=== PATIENT | male | born 1985 | race Caucasian/White ===

== ENCOUNTER 2023-08-11 09:04 | Observation (INO) | payer OTHER, SELFPAY ==
[2023-08-11 09:09] VITALS: BP 147/86; PULSE 84; RESP 16; TEMP 36.5; O2SAT 98; BMI 25.2
--- NOTE | 2023-08-11 09:14 | CT_ITS ---
[address] [address] Patient Name: GOVIND AVILEZ MRN: [id number] date: 1985 Sex: M Assigned Patient Location: ER Current Patient Location: [facility] Accession/Order Number: [id number] Exam Date: 08/11/2023 09:30 Report Date: 08/11/2023 10:05 At the request of: ROBBIE WARE Procedure: CT abdomen pelvis w con EXAMINATION: CT abdomen pelvis w con HISTORY: lower abd pain COMPARISON: No relevant comparison available. TECHNIQUE: CT images were created with IV contrast. Axial, Coronal, and Sagittal images. Dose reduction techniques were achieved by using automated exposure control and/or adjustment of mA and/or kV according to patient size and/or use of iterative reconstruction technique. FINDINGS: LUNG BASES: No visible pulmonary or pleural disease. LIVER: No enlargement, atrophy, abnormal density, or significant focal lesion. BILIARY: No visible dilatation or calcification. PANCREAS: No lesion, fluid collection, ductal dilatation, or atrophy. SPLEEN: No enlargement or focal lesion. ADRENALS: No mass or enlargement. KIDNEYS: 3.5 mm proximal right ureterolith without hydronephrosis. 2 mm right nephrolith. Normal left. BOWEL/MESENTERY: No visible mass, obstruction, or bowel wall thickening.Normal appendix AORTA/VASCULAR: No aneurysm or dissection. RETROPERITONEUM: No mass or adenopathy. LYMPH NODES: No adenopathy. URINARY BLADDER: No visible focal wall thickening, lesion, or calculus. PELVIC ORGANS: No visible mass. Pelvic organs appropriate for patient age. ABDOMINAL WALL: No mass or hernia. BONES: No bony lesion or fracture. OTHER: Negative. CT/CT abdomen pelvis w con IMPRESSION: 3.5 mm proximal right ureterolith without hydronephrosis Electronically authenticated by: RUBEN PUTNAM Date: 08/11/2023 10:05
--- NOTE | 2023-08-11 09:18 | ED_ITS ---
HPI - General Adult General Chief complaint: Abdominal Pain Stated complaint: ABDOMINAL PAIN Time Seen by Provider: 08/11/23 09:06 Source: patient Mode of arrival: walk-in Limitations: no limitations History of Present Illness HPI narrative: Is 37-year-old male to the emergency department with chief complaint of abdominal pain. Has been ongoing for the last week. He is cramping in nature. It is located across lower abdomen. He reports there is small amount of blood in his stool. He had outpatient labs and urinalysis performed which were unremarkable per his report. He was sent by his primary care physician for a CT scan. Is no history of colonoscopy. He has a history of chronic gastrointestinal problems which have not been worked up. He has a history of diabetes. Related Data Allergies Allergy/AdvReac Type Severity Reaction Status Date / Time No Known Drug Allergies Allergy Verified 08/11/23 09:13 Review of Systems ROS Status of ROS 10 or more systems reviewed and unremark able except as noted in history and below Exam Narrative Exam Narrative: VITALS: I have reviewed the triage vital signs. GENERAL: Well developed, well appearing adult in no acute distress. NEURO: Alert and oriented. Moves all extremities. Face is symmetric and expressive. EYES: PERRL. No scleral icterus or conjunctival injection. No discharge. HENT: Normocephalic, atraumatic. Hearing is grossly intact. Nares grossly patent and without discharge. Mucous membranes moist. NECK: No JVD. Patient moves neck without restriction. CARDIO: Rhythm regular. Normal rate. No murmur, rub, or gallop. Pulses equal bilaterally in the upper and lower extremity. No lower extremity edema. PULM: Lungs clear to auscultation in all isaac. No wheezes, rales, or rhonchi. No conversational dyspnea. No splinting, stridor, or accessory muscle use. GI/: Abdomen is soft. Mild mid upper and lower abdominal tenderness. No rebound or guarding. Normoactive bowel sounds. EXTREMITIES: Symmetric muscle bulk. No joint swelling. No clubbing, cyanosis, or deformity. SKIN: Warm and dry. Normal turgor. No rash or lesions appreciated. PSYCH: Mood, affect, and interaction is appropriate to the setting. Constitutional Vital Signs, click to edit/add: Last Vital Signs Temp 97.7 F 08/11/23 09:09 Pulse 84 08/11/23 09:09 Resp 16 08/11/23 09:09 BP 147/86 H 08/11/23 09:09 Pulse Ox 98 08/11/23 09:09 O2 Del Method Room Air 08/11/23 09:09 Course Vital Signs Vital signs: Vital Signs Temperature 97.7 F 08/11/23 09:09 Pulse Rate 84 08/11/23 09:09 Respiratory Rate 16 08/11/23 09:09 Blood Pressure 147/86 H 08/11/23 09:09 Pulse Oximetry 98 08/11/23 09:09 Oxygen Delivery Method Room Air 08/11/23 09:09 Temperature 97.7 F 08/11/23 09:09 Pulse Rate 84 08/11/23 09:09 Respiratory Rate 16 08/11/23 09:09 Blood Pressure 147/86 H 08/11/23 09:09 Pulse Oximetry 98 08/11/23 09:09 Oxygen Delivery Method Room Air 08/11/23 09:09 Medical Decision Making MDM Narrative Medical decision making narrative: 37-year-old male sent to the emergency department for her CT scan from PCP. Vital stable, the patient is afebrile. Mild tenderness on exam. We'll obtain basic labs, urinalysis, CT scan. Patient agrees with this plan. CBC and chemistry without acute findings. His lipase is elevated three times the upper limit of normal suggesting acute pancreatitis. Urinalysis with some blood, no evidence of infection. CT scan shows uncomplicated right-sided ureterolithiasis with 3.5 mm proximal stone. There is no hydronephrosis. There is no hepatobiliary pathology noted. Patient with idiopathic pancreatitis. He does not need admission for the kidney stone and this would only necessitate outpatient follow-up with urology. We'll admit the patient for IV fluids and further workup for his pancreatitis. Patient agrees with this plan. Toradol as ordered for discomfort. Lactated Ringer's ordered for fluids. I interviewed patient about potential causes for his pancreatitis. He reports that his mother had bouts of pancreatitis throughout her life with no identified cause. He denies alcohol use. Case discussed with Dr. Hudson who agrees to admit this patient to his service. Medical Records Medical records reviewed: Yes I reviewed the patient's medical records Lab Data Lab results reviewed: Yes I reviewed the patient's lab results Labs: Lab Results 08/11/23 Range/Units 09:15 WBC 6.5 (4.0-11.0) 10^3/uL RBC 5.03 (4.70-6.10) 10^6/uL Hgb 15.1 (14.0-18.0) g/dL Hct 45.8 (42.0-54.0) % MCV 91.1 (80.0-94.0) fL MCH 30.0 (25.9-34.0) pg MCHC 33.0 (29.9-35.2) g/dL RDW 12.8 (11.0-15.0) % Plt Count 238 (150-450) 10^3/uL MPV 10.3 (9.5-13.5) fL Neut % (Auto) 57.4 (43.0-75.0) % Lymph % (Auto) 26.3 (20.5-60.0) % [place] % (Auto) 7.1 (1.7-12.0) % Eos % (Auto) 8.3 H (0.9-7.0) % Baso % (Auto) 0.6 (0.2-2.0) % Neut # (Auto) 3.7 (1.4-6.5) 10^3/uL Lymph # (Auto) 1.7 (1.2-3.8) 10^3/uL [place] # (Auto) 0.5 (0.3-0.8) 10^3/uL Eos # (Auto) 0.5 (0.0-0.7) 10^3/uL Baso # (Auto) 0.0 (0.0-0.1) 10^3/uL Abs Immat Gran (auto) 0.02 (0.00-0.03) 10^3/uL Imm/Tot Granulo (auto) 0.3 (0.0-0.5) % Sodium 140 (136-145) mmol/L Potassium 4.4 (3.5-5.1) mmol/L Chloride 106 (98-107) mmol/L Carbon Dioxide 29.0 (21.0-32.0) mmol/L Anion Gap 9.4 BUN 16.0 (7.0-18.0) mg/dL Creatinine 1.10 (0.70-1.30) mg/dL Est GFR ( Amer) >60 (>=60) Est GFR (Non-Af Amer) >60 (>=60) BUN/Creatinine Ratio 14.5 Glucose 109 H (74-106) mg/dL Calcium 9.1 (8.5-10.1) mg/dL Total Bilirubin 0.2 (0.2-1.0) mg/dL AST 23 (15-37) U/L ALT 44 (16-63) U/L Alkaline Phosphatase 85 (46-116) U/L Total Protein 7.6 (6.4-8.2) g/dL Albumin 3.9 (3.4-5.0) g/dL Globulin 3.7 g/dL Albumin/Globulin Ratio 1.1 Lipase 301.0 H (16.0-77.0) U/L Urine Color Lt. yellow (YELLOW) Urine Clarity Clear (CLEAR) Urine pH 5.5 (5.0-9.0) Ur Specific [place] >=1.030 A (1.005-1.025) Urine Protein Negative (NEG/TRACE) mg/dL Urine Glucose (UA) Negative (NEGATIVE) mg/dL Urine Ketones Negative (NEGATIVE) mg/dL Urine Occult Blood Moderate A (NEGATIVE) Urine Nitrite Negative (NEGATIVE) Urine Bilirubin Negative (NEGATIVE) Urine Urobilinogen 0.2 (0.2-1.0) EU/dL Ur Leukocyte Esterase Negative (NEGATIVE) Urine RBC 2-5 A (0-2) #/HPF Urine WBC None seen (NONE SEEN) #/HPF Ur Squamous Epith Cells Rare (NONE/RARE) #/LPF Urine Crystals None seen (None Seen) #/HPF Urine Bacteria Trace A (NONE SEEN) #/HPF Urine Casts None seen (NONE SEEN) #/LPF Urine Mucus Trace A (NONE SEEN) Ur Culture Indicated? No Imaging Data CT scan - abdomen: Radiologist's impression: ITS Impressions Abdomen/Pelvis CT 08/11/23 09:14 IMPRESSION: 3.5 mm proximal right ureterolith without hydronephrosis Electronically authenticated by: RUBEN PUTNAM Date: 08/11/2023 10:05 Discharge Plan Discharge Chief Complaint: Abdominal Pain Clinical Impression: Colic, ureteral, Acute pancreatitis Patient Disposition: Admitted as Observation Time of Disposition Decision: 11:10 Condition: Good Referrals: Physician,Non-Staff, MD [Primary Care Provider] - 1 week
[2023-08-11 09:33] LABS: Basophils Percent Auto 0.6 % (0.2-2.0); Eosinophils Absolute Auto 0.5 10^3/uL (0.0-0.7); Eosinophils Percent Auto 8.3 % (0.9-7.0); Hematocrit 45.8 % (42.0-54.0); Hemoglobin 15.1 g/dL (14.0-18.0); Immature Granulocytes Abs Auto 0.02 10^3/uL (0.00-0.03); Immature Granulocytes Pct Auto 0.3 % (0.0-0.5); Lymphocytes Absolute Auto 1.7 10^3/uL (1.2-3.8); Lymphocytes Percent Auto 26.3 % (20.5-60.0); Mean Corpuscular Volume 91.1 fL (80.0-94.0); Mean Platelet Volume 10.3 fL (9.5-13.5); Monocytes Absolute Auto 0.5 10^3/uL (0.3-0.8); Monocytes Percent Auto 7.1 % (1.7-12.0); Neutrophils Absolute Auto 3.7 10^3/uL (1.4-6.5); Neutrophils Percent Auto 57.4 % (43.0-75.0); Platelet Count 238 10^3/uL (150-450); Red Blood Count 5.03 10^6/uL (4.70-6.10); Red Cell Distribution Width 12.8 % (11.0-15.0); White Blood Count 6.5 10^3/uL (4.0-11.0)
[2023-08-11] MEDS: 0.9 % SODIUM CHLORIDE 1,000 ML 999 ML IV (09:44)
[2023-08-11 09:46] LABS: Alanine Aminotransferase 44 U/L (16-63); Albumin Globulin Ratio 1.1; Albumin Level 3.9 g/dL (3.4-5.0); Alkaline Phosphatase 85 U/L (46-116); Anion Gap 9.4; Aspartate Amino Transferase 23 U/L (15-37); BUN Creatinine Ratio 14.5; Bilirubin Total 0.2 mg/dL (0.2-1.0); Calcium 9.1 mg/dL (8.5-10.1); Chloride 106 mmol/L (98-107); Estimated GFR (African America >60 (>=60); Estimated GFR (Non-African Ame >60 (>=60); Globulin 3.7 g/dL; Glucose 109 mg/dL (74-106); Potassium 4.4 mmol/L (3.5-5.1); Sodium 140 mmol/L (136-145); Total Protein 7.6 g/dL (6.4-8.2)
[2023-08-11 09:52] LABS: Bilirubin Urine NEGATIVE (NEGATIVE); Blood Urine MODERATE (NEGATIVE); Clarity Urine CLEAR (CLEAR); Color Urine LT. YELLOW (YELLOW); Glucose Urine UA NEGATIVE (NEGATIVE); Ketones Urine NEGATIVE (NEGATIVE); Leukocyte Esterase Urine NEGATIVE (NEGATIVE); Nitrite Urine NEGATIVE (NEGATIVE); Protein Urine NEGATIVE (NEG/TRACE); Specific Gravity Urine >=1.030 (1.005-1.025); Urobilinogen Urine 0.2 EU/dL (0.2-1.0); pH Urine 5.5 (5.0-9.0)
[2023-08-11 10:02] LABS: Urine Microscopic Indicated YES
[2023-08-11 10:16] LABS: WBC Urine NONE SEEN #/HPF (NONE SEEN)
[2023-08-11 10:17] LABS: Bacteria Urine TRACE #/HPF (NONE SEEN); Cast Seen? NONE SEEN #/LPF (NONE SEEN); Crystals Seen? None Seen #/HPF (None Seen); Mucus Urine TRACE (NONE SEEN); Squamous Epithelial Cell Urine RARE #/LPF (NONE/RARE); Urine Culture Indicated NO
[2023-08-11] MEDS: LACTATED RINGER'S SOLUTION 1,000 ML 1000 ML IV (11:19)
[2023-08-11] MEDS: KETOROLAC TROMETHAMINE 30 MG/ML VIAL 15 MG IVP (11:19)
[2023-08-11 11:50] VITALS: BP 132/83; PULSE 114; TEMP 36.2; O2SAT 95; BMI 27.0
[2023-08-11 12:27] VITALS: O2SAT 97
[2023-08-11] MEDS: LACTATED RINGER'S SOLUTION 1,000 ML 125 ML IV (12:35)
--- NOTE | 2023-08-11 12:46 | P.HP_ITS ---
<Statement entered by Shaikh Becca MD - 08/11/23 15:24> This documentation has been reviewed and approved. Case d/w Do. Patient was not seen as I had left for office. Agree with treatment plan Unspecified abdominal pain Elevated lipase Non obs uretheral stone. Assessment and plan No sig intra abdominal patholgoy noted on CT. Surgery consulted. C/w IVF. Monitor HPI H&P: HPI History of Present Illness Chief complaint: ABDOMINAL PAIN Narrative: 08/11/23 1224 This is a 37-year-old male patient with a benign past medical history except for tobacco abuse, who presented to the ED this morning complaining of a 3-month course of abdominal pain and bloody stools. The patient initially noted lower abdominal discomfort in late May but did not think anything of it. By June the patient's abdominal discomfort was occurring daily and was notably postprandial. He describes his abdominal discomfort as crampy and pressure , occurring approximately 20 minutes after eating and lasting for several hours. He also has noted onset of softer stools that are always accompanied with bleeding (BRBPR). He notes his stools are blood-streaked or covered, but not primarily bloody content. He denies mucoid stools. He has not checked his temperature at home but has noted night sweats for the last few weeks. He denies dysuria or hematuria, nausea or vomiting or diarrhea. He endorses softer but formed stools. Again, his abdominal discomfort is focused in the lower quadrant/suprapubic area. Over the last couple of weeks the patient's abdominal pain has become quite severe and he presented to his PCP for evaluation yesterday. He was sent by his PCP to the ED for CT imaging and lab work. Workup in the ED was mostly benign. The only abnormal lab value was an elevated lipase (301). No leukocytosis or anemia was noted. A UA was negative for acute infection. A CT of the abdomen and pelvis was unremarkable except for a small, non-obstructing right ureterolith. He was admitted to the hospitalist service in observation for further abdominal pain workup and possible pancreatitis. At the time of my exam the patient continues to endorse lower abdominal pain and tenderness. He reports that he stopped smoking 3 weeks ago. He has never partaken of significant amounts of alcohol and he has had no alcohol for the last 3 months. He notes that coconut milk is the only thing that helps to relieve his discomfort for a few hours, otherwise he has not found any dietary modifications that have helped or worsened his pain. He attempted to cut out lactose from his diet initially but had no improvement in symptoms. On exam he is mildly tender to the left upper quadrant but exquisitely tender to the suprapubic area with mild guarding but no rebound. He denies any family history of inflammatory bowel disease. He notes ~ 10# weight loss over the last 3 months associated with decreased appetite/intake 2/2 to acute pain with eating. Opioid HPI Opioid Management Most Recent Opioid Data: Last Pain Assessment 08/11/23 14:24 Last ORT Total Score 14 08/11/23 11:59 Last ORT Risk Category High Risk 08/11/23 11:59 Review of Systems ROS Status of ROS 10 or more systems reviewed and unremark able except as noted in history and below [facility] Medical History (Updated 08/11/23 @ 13:15 by Do Cardona NP) Tobacco abuse ?Z72.0 - Tobacco use (ICD-10) History of broken leg ?Z87.81 - Personal history of (healed) traumatic fracture (ICD-10) Family History (Updated 08/11/23 @ 12:18 by Cheryl France LPN) Mother Family history of cancer Family history of diabetes mellitus Social History (Updated 08/11/23 @ 12:19 by Cheryl France LPN) Smoking status: Former smoker Second hand tobacco smoke exposure: No Non-prescribed substance use: cannabis (any form) 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 Known occupational exposures/hazards: No Highest level of school completed/degree received: high school graduate Are you now , , , , never or living with a partner: In a typical week, how many times do you talk on the telephone with family, friends, or neighbors: 3 or more times per week How often do you get together with friends or relatives: 3 or more times per week How often do you attend shinto or advent services: never Do you belong to any clubs or organizations such as shinto groups unions, fraternal or athletic groups, or school groups: no Total score: 2 Score interpretation: A score of greater than or equal to 2 indicates the lowest level of social isolation. Little interest or pleasure in doing things: not at all Feeling down, depressed, or hopeless: not at all Feel stressed/tense/nervous/anxious/difficulty sleeping: not at all Due to disability, difficulty making decisions: No Do you think of yourself as: straight/heterosexual Gender Identity: male Meds Home Medications and Allergies Home Medications Medication Instructions Recorded Confirmed Type bupropion HCl 300 mg 24 hr tablet, 300 mg PO DAILY 08/11/23 08/11/23 History extended release Allergies Allergy/AdvReac Type Severity Reaction Status Date / Time No Known Drug Allergies Allergy Verified 08/11/23 09:13 Exam Constitutional Vital Signs, click to edit/add: Last Vital Signs Temp 97.2 F L 08/11/23 11:50 Pulse 114 H 08/11/23 11:50 Resp 16 08/11/23 09:09 BP 132/83 08/11/23 11:50 Pulse Ox 97 08/11/23 12:27 O2 Del Method Room Air 08/11/23 12:27 Common normals: no apparent distress, oriented x3, alert and well nourished General appearance: cooperative Orientation/consciousness: Yes awake HENMT Common normals: normocephalic, head/scalp atraumatic, hearing grossly normal bilaterally, external nose normal and moist oral mucous membranes Eye Common normals: PERRL, EOMs intact bilaterally, conjunctivae normal and no scleral icterus Alignment: alignment normal Eyelid: eyelids normal Neck & C-Spine Common normals: full ROM, supple and no JVD Chest Common normals: inspection of chest normal Chest: symmetrical chest wall rise Respiratory Common normals: normal respiratory effort, no retractions, no use of accessory muscles and clear to auscultation bilaterally Effort & inspection: able to speak in complete sentences Cardio Common normals: no JVD, regular rate, regular rhythm, S1 normal heart sound, S2 normal heart sound, no gallops, no clicks, no murmurs, no rub and peripheral pulses 2+ throughout GI Common normals: Normal to inspection, nondistended, normoactive bowel sounds present, soft to palpation, no hepatosplenomegaly, no masses and no bruits Palpation: tender Details: LUQ (mild, no rebound/guarding) and suprapubic (Exquisitely tender, mild guarding, no rebound) Rectal Exam - Male: deferred (to surgical service) Back & Pelvis Common normals: thoracic and lumbar spine normal to inspection Extremity Common normals: normal capillary refill and no pedal edema General: normal exam except as noted; no clubbing and no cyanosis Neuro [place] Coma Scale: GCS not evaluated Common normals: CN's II-XII intact bilaterally, moves all extremities, no focal motor deficits and no sensory deficits noted Speech: speech normal Motor exam: strength 5/5 throughout Psych Common normals: mental status grossly normal, thought process normal, affect normal and activity/motor behavior normal Results Labs Labs: Short CBC 08/11/23 Range/Units 09:15 WBC 6.5 (4.0-11.0) 10^3/uL Hgb 15.1 (14.0-18.0) g/dL Hct 45.8 (42.0-54.0) % Plt Count 238 (150-450) 10^3/uL BMP 08/11/23 09:15 Sodium 140 Potassium 4.4 Chloride 106 Carbon Dioxide 29.0 BUN 16.0 Creatinine 1.10 Glucose 109 H Calcium 9.1 Liver Function 08/11/23 Range/Units 09:15 Total Bilirubin 0.2 (0.2-1.0) mg/dL AST 23 (15-37) U/L ALT 44 (16-63) U/L Alkaline Phosphatase 85 (46-116) U/L Albumin 3.9 (3.4-5.0) g/dL Urine 08/11/23 Range/Units 09:15 Urine Color Lt. yellow (YELLOW) Urine Clarity Clear (CLEAR) Urine pH 5.5 (5.0-9.0) Ur Specific [place] >=1.030 A (1.005-1.025) Urine Protein Negative (NEG/TRACE) mg/dL Urine Glucose (UA) Negative (NEGATIVE) mg/dL Pulse Oximetry Attestation: I have reviewed the pertinent pulse oximetry results. Imaging CT scan - abdomen: Attestation: I have reviewed the pertinent imaging results. Radiologist's impression: IMPRESSION: 3.5 mm proximal right ureterolith without hydronephrosis Assessment and Plan Assessment and Plan (1) Abdominal pain of unknown etiology: Assessment and Plan: Acute * Adm observation * Lower abdominal pain of unclear etiology * Associated with bloody soft stools, night sweats * No N/V/D, mucoid stools * C/S General surgery for possible colonoscopy - we appreciate Dr Nill's assistance with this pt's care * NPO for now pending Gen surgery eval * LR at 125/hr * Toradol PRN for pain * CBC, CMP daily (2) Acute pancreatitis: Assessment and Plan: Acute * Elevated lipase in the ED * Epigastric/LUQ tenderness on exam * Unremarkable pancreas on CT imaging * Normal caliber CBD, no cholelithiasis * NPO and IVFs for hydration * No EtOH abuse history (3) Tobacco abuse: Assessment and Plan: Chronic * In recent remission (x 3 weeks) * Continue home bupropion
--- NOTE | 2023-08-11 15:09 | PC.NURSE ---
urine strained, no visible clots or stones
[2023-08-11 15:38] VITALS: BMI 27.0
[2023-08-11 15:46] VITALS: BP 134/86; PULSE 70; RESP 16; TEMP 36.3; O2SAT 99
[2023-08-11 16:03] LABS: Cannabinoid Screen Urine POSITIVE (NEGATIVE); Cocaine Screen Urine NEGATIVE (NEGATIVE); Methamphetamines Screen Urine NEGATIVE (NEGATIVE); Opiate Screen Urine NEGATIVE (NEGATIVE); Phencyclidine Screen Urine NEGATIVE (NEGATIVE)
[2023-08-11 16:04] LABS: Amphetamine Screen Urine NEGATIVE (NEGATIVE); Barbiturates Screen Urine NEGATIVE (NEGATIVE); Benzodiazepines Screen Urine NEGATIVE (NEGATIVE); Buprenorphine Screen Urine NEGATIVE (NEGATIVE); Methadone Screen Urine NEGATIVE (NEGATIVE); Oxycodone Screen Urine NEGATIVE (NEGATIVE); Tricyclic Antidepressant Urine NEGATIVE (NEGATIVE)
[2023-08-11] MEDS: PANTOPRAZOLE SODIUM 40 MG VIAL IV (16:15)
[2023-08-11] MEDS: KETOROLAC TROMETHAMINE 30 MG/ML VIAL IVP (16:16)
--- NOTE | 2023-08-12 13:28 | CM.DCFOLLOWU ---
Person spoke with: patient How are you feeling? much better How is your pain? limited Did you understand your discharge instructions? yes Do you have any questions about your discharge instructions? no Were you given any prescriptions at discharge? no Were you able to get your prescriptions filled? N/A Do you understand how to take your medications as ordered? yes Do you have any questions about your follow up appointment and do you plan to keep your follow up appointment? no questions, provided him with Dr. Plascencia's office number and let pt know they should be calling tomorrow to schedule follow up Is there anything else that you would like to discuss? no Questions/Comments/Concerns/Other: N/A
== END 2023-08-11 16:45 | disposition home or self-care (01) ==
LOC: ER 11:29 → MS 11:50
PROVIDERS: Surgery; Admitting Provider Internal Medicine; Emergency Provider Student in an Organized Health Care Education/Training Program; Visit Provider Internal Medicine
DX: R10.30 Lower abdominal pain, unspecified (principal); R74.8 Abnormal levels of other serum enzymes; N20.1 Calculus of ureter; Z87.81 Personal history of (healed) traumatic fracture; Z87.891 Personal history of nicotine dependence
CPT/HCPCS: 36415; 74177; 80053; 80307; 81001; 83690; 85025; 94761; 96374; 96375; 96376; 99285; G0378; Q9967

== ENCOUNTER 2023-11-23 12:22 | Outpatient (OUT) | payer OTHER, SELFPAY ==
--- OUTSIDE RECORDS SUMMARY | 2023-11-23 12:29 | XMS_ITS | CCD ---
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 Name Role Phone QUIROS, SHERI A Unavailable Unavailable QUIROS, SHERI A Unavailable Unavailable QUIROS, SHERI A Unavailable Unavailable ZIEBJOSTIN WELLS Unavailable Unavailable Rosemary KELLY, Jana Sanon Primary Care Provider Jany Liang NP Unavailable SERVICES, [facility] Primary Care Unava JANY Mercado Attending Unavailable JANY LIANG Attending Unavailable SANDY SAN Attending Unavailable JANY LIANG Referring Unavailable JANY LIANG Attending Unavailable JANY LIANG Attending Unavailable JANY LIANG Attending Unavailable JANY LIANG Attending Unavailable JANY LIANG Primary Care Physician Seven TINOCO Attending Unavailable Seven TINOCO Attending Unavailable JANY LIANG Referring Unavailable Allergies Allergy Classification Reported Allergen(s) Allergy Type Date of Onset Reaction(s) Facility (1 source) No Known Medication Allergies; Translations: [No Known Medication Allergies] Propensity to adverse reactions (disorder) [facility] Repository Medications Current Medications Medication Drug Class(es) Dates Sig (Normalized) Sig (Original) 24 hr buPROPion hydrochloride 300 mg extended release oral tablet (2 sources) Aminoketone Start: 09-02-2023 take 1 tablet by mouth once daily Wellbutrin XL 300 mg/24 hours Tab-ER 300 mg = 1 tab(s), Oral, Daily, Refills(s) 0 Start Date: 09/02/23 Status: Ordered Start: 05-12-2023 take 1 tablet by stan th every twenty-four hours in the morning buPROPion XL (Wellbutrin XL) 300 MG 24 hr tablet Indications: Anxiety Take 1 tablet (300 mg) by mouth in the morning. 90 tablet 1 05/12/2023 Active docosahexaenoic acid 120 mg / eicosapentaenoic acid 180 mg oral capsule (1 source) omega-3 1000 MG capsule capsule 1,000 mg in the morning. 0 Active Multiple Vitamin (Therems) tablet (1 source) take 1 tablet by mouth in the morning Multiple Vitamin (Therems) tablet Take 1 tablet by mouth in the morning. 0 Active Multivitamin preparation (1 source) Start: 09-02-2023 take 1 tablet by mouth once daily multivitamin 1 tab(s), Oral, Daily, Refill(s) 0 Start Date: 09/02/23 Status: Ordered Problems Problem Classification Problem Date Documented Da te Episodic/Chronic Abdominal pain (2 sources) Abdominal pain; Translations: [Right lower quadrant pain] Onset: 08-10-2023 09-02-2023 Episodic Anxiety disorders (1 source) Anxiety; Translations: [Anxiety disorder, unspecified] Onset: 10-08-2022 10-08-2022 Chronic Calculus of urinary tract (1 source) Ureteric stone 09-02-2023 Episodic Gastrointestinal hemorrhage (3 sources) Hemorrhage of rectum and anus; Translations: [Hemorrhage of anus and rectum] Onset: 09-29-2023 Episodic Genitourinary symptoms and ill-defined conditions (1 source) Blood in urine Onset: 08-10-2023 Episodic Miscellaneous mental health disorders (1 source) Primary insomnia; Translations: [Primary insomnia] Onset: 10-08-2022 10-08-2022 Chronic Other nutritional; endocrine; and metabolic disorders (1 source) Overweight 09-29-2023 Episodic Other nutritional; endocrine; and metabolic disorders (1 source) Overweight in adulthood with body mass index of 25 or more but less than 30 09-29-2023 Episodic Unclassified (1 source) Blood in Urine, sent over by doc Onset: 08-10-2023 Results Test Name Value Interpretation Reference Range Facil ity Insurance Correspondenceon 0 11-20-2023 Insurance Correspondence [id number]#1.00TIFF Normal [facility] Consent for Procedure/Surger yon 09-30-2023 Consent for Procedure/Surgery [id number]#1.00TIFF Normal [facility] Facesheeton 09-30-2023 Facesheet [id number]#1.00TIFF [facility] Ambulatory Visit Summaryon 0 09-29-2023 Ambulatory Visit Summary GOVIND AVILEZ :1985 Visit Date:09/29/2023 Ambulatory Visit Instructions Your Care Team Attending Physician - Seven TINOCO MD Primary Care Physician - JANY LIANG CNP Referring Physician - JANY LIANG CNP This Is Your Medications List Contact prescribing physician if questions or concerns buPROPion (Wellbutrin XL 300 mg/24 hours Tab-ER) multivitamin Procedures Performed Tonsillectomy with adenoidectomy. Discharge Vitals Heart Rate (Peripheral) 72 Respiratory Rate 16 Blood Pressure 124/84 Height 180.34 cm Height 71 in Weight 87.3 kg Weight 192.06 lb BMI 26.84 Medications What How Much When Instructions Unchanged buPROPion (Wellbutrin XL 300 mg/ 24 hours Tab-ER) 1 Tablets By Mouth Every day Contact prescribing physician if questions or concerns Unchanged multivitamin 1 Tablets By Mouth Every day Contact prescribing physician if questions or concerns Allergies No Known Allergies No Known Medication Allergies Problems Ongoing - Any problem that you are currently receiving treatment for. BMI 26.0-26.9,adult BRBPR (bright red blood per rectum) Overweight RLQ abdominal pain Ureterolithiasis Patient Survey You may receive a survey via text or e-mail asking about your office visit. Please share your experience with us by completing your survey. We appreciate your feedback and thank you for choosing us for your care. [facility] ED Note-Physicianon 08-30-19 24 ED Note-Physician [id number]#1.00TIFF [facility] RAD - CT Reporton 08-30-2023 RAD - CT Report [id number]#1.00TIFF [facility] Physician Referralon 024 Physician Referral [id number]#1.00TIFF [facility] US JOHN DOP LEG LTon 05-15-20 17 US JOHN DOP LEG LT [address] [place] [address] Patient: GOVIND AVILEZ Exam Date: 05/15/2017DOB: 1985 Gender:M : DR SHERI QUIROS . Admission #: [id number] : Order #: [id number] HERE TO VIEW EXAM RADIOLOGY REPORT PROCEDURE: ULTRASOUND VENOUS DOPPLER LEG LEFT COMPARISON: US JOHN DOP LEG LT, 11/06/2016. INDICATIONS: Acute embolism and thrombus of other specified deep vein of left lower extremity TECHNIQUE: Lower extremity sands scale and Duplex Doppler evaluation of the deep venous system from the inguinal ligament through the calf veins. FINDINGS: REGION: Left lower extremity.THROMBI: None. COMPRESSIBILITY: Normal compressibility.FL OW: Normal waveform and antegrade flow between 5 and 20 cm/s. *Exam performed in accordance with [facility] practice guidelines- Peripheral venous ultrasound, August 25, 2009. CONCLUSION: 1. No deep vein thrombosis within the left lower extremity. Dictated by: Jostin Contreras M.D. on 05/15/2017 at 12:35 Approved by: Jostin Contreras M.D. on 05/15/2017 at 12:39 Normal [facility] Vital Signs Date Time Vital Sign Value Performing Clinician Neeta bae 09-29-2023 13:11-0400 Blood Pressure Location Seven TINOCO [facility] 09-29-2023 13:11-0400 Diastolic blood pressure 84 mm[Hg] Seven PALMERL [facility] 09-29-2023 13:11-0400 Heart rate 72 /min Seven PALMERL [facility] 09-29-2023 13:11-0400 Respiratory rate 16 /min Seven PALMERL [facility] 09-29-2023 13:11-0400 Systolic blood pressure 124 mm[Hg] Seven PALMERL [facility] Encounters Encounter Date Encounter Type Care Provider Facility Start: 09-29-2023 End: 09-29-2023 ambulatory Seven TINOCO Facility: [facility] Start: 09-29-2023 End: 09-29-2023 Patient encounter procedure Seven TINOCO [facility] Start: 08-31-2023 End: 08-31-2023 ambulatory JANY R LIANG Not Available Start: 08-27-2023 ambulatory Seven TINOCO Facility : [facility] Start: 08-17-2023 End: 08-17-2023 ambulatory JANY R LIANG Not Available Start: 08-10-2023 End: 08-10-2023 Emergency department patient visit [facility] Start: 08-10-2023 End: 08-11-2023 ambulatory JANY R LIANG Not Available Start: 07-07-2023 Chart abstracting Sandy miranda MD Work Phone: [facility] Start: 07-07-2023 End: 07-07-2023 ambulatory SANDY SAN Not Available Start: 07-01-2023 End: 07-01-2023 ambulatory JANY R LIANG Not Available Start: 06-11-2023 End: 06-11-2023 ambulatory JANY R LIANG Not Available Start: 05-12-2023 End: 05-12-2023 ambulatory JANY R LIANG Not Available Start: 05-15-2017 End: 05-16-2017 Ambulatory SHERI QUIROS Facility: Procedures Date Procedure Procedure Detail Performing Clinician Tonsillectomy and adenoidectomy Seven TINOCO Plan of Treatment Date Care Activity Detail Author Start: 09-22-2023 End: 09-22-2023 Patient encounter procedure 09/22/2023 8:30 AM EDT Office Visit [facility] [address] [place] [id number] Jany Liang NP [address] [place] [address] [facility] Start: 07-07-2023 End: 07-07-2023 Patient encounter procedure 07/07/2023 11:30 AM EST Office Visit [facility] [address] [facility] [address] [place] [id number] Sandy San MD [address] [facility] [address] [place] [address] [facility] Start: 01-30-2023 Influenza vaccination Influenza Vacc ine (#1) [facility] Immunizations Immunization Date Immunization Notes Care Provider Fa cility 01-07-2021 SARS-CoV-2 (COVID-19 ) mRNA BNT-162b2 vax [employer] [facility] Comment on above: Result Comment: 2023: ALL 12-14-2020 SARS-CoV-2 (COVID-19 ) mRNA BNT-162b2 vax [employer] [facility] Comment on above: Result Comment: 2023: ALL Payers Date Payer Category Payer Unknown BCBS BCBS [id number] 2023-Present [phone] [address] [place] [address] [id number] 2023 Unknown [id number] 2022 Unknown [id number] 1985 Unknown [id number] 1985 Unknown [id number] [id number] 1985 Unknown [id number] [id number] 1985 Unknown [id number] 1985 Unknown [id number] 1985 Unknown [id number] [id number] 1985 Unknown [id number] [id number] 1985 Unknown [id number] 1985 Unknown [id number] 1985 Unknown [id number] [id number] 1958 Self-pay [id number] Social History Date Type Detail Facility Start: 05-12-2023 Tobacco smoking status KYIS Occasional tobacco smoker [facility] History of tobacco use Cigarette Smoker [facility] Start: 05-11-2023 End: 05-12-2023 Cigarettes smoked current (pack per day) - Reported 0.3 [facility] Start: 05-12-2023 Tobacco use and exposure Smokeless tobacco non-user [facility] Start: 07-07-2023 Alcohol intake Current drinker of alcohol (finding) [facility] Start: 10-30-2022 End: 05-11-2023 Humiliation, Afraid, Rape, and Kick questionnaire [HARK] [facility] Within the last year , have you been afraid of your partner or ex-partner? No [facility] Do you belong to any clubs or organizations such as synagogue groups, unions, fraternal or athletic groups, or school groups? Yes [facility] Are you now , , , , never or living with a partner? [facility] How often to you hav e a drink containing alcohol? Monthly or less [facility] How many standard dr inks containing alcohol do you have on a typical day? 1 or 2 [facility] How often do you hav e 6 or more drinks on 1 occasion? Less than monthly [facility] How hard is it for y ou to pay for the very basics like food, housing, medical care, and heating Not very hard [facility] Do you feel stress - tense, restless, nervous, or anxious, or unable to sleep at night because your mind is troubled all the time - these days [OSQ] To some extent [facility] (I/We) worried wherachid er (my/our) food would run out before (I/we) got money to buy more. Never true [facility] In the past 12 month s, has lack of transportation kept you from medical appointments or from getting medications? No [facility] Start: 1985 Sex Assigned At Male [facility] Start: 10-30-2022 Gender identity Identifies as male gender (finding) [facility] Start: 10-30-2022 Sexual orientation Heterosexual (finding) [facility] Start: 09-29-2023 Tobacco smoking status Light tobacco smoker (finding) [facility] Functional Status Date Assessment Result Facility 09-29-2023 Functional Status N/A [facility] Clinical Note 09-29-2023 Note Date & Type Note Facility 09-29-2023 Note Chief Complaint consultation for rectal bleeding HPI Staff 37 year old male presents on consultation from Jany Liang [facility] for rectal bleeding. Presented to [place] ED 08/10 with complaint of crampy lower abdominal pain with rectal bleeding for greater than one week. Reports rectal bleeding has been intermittent over several years but was worse recently while experiencing abdominal pain. Pain has since resolved. Denies nausea or vomiting. Never had colonoscopy in the past. No known family history of IBD. History of Present Illness 37 yo male referred for rectal bleeding and abd pain; patient reports 3 month h/o lower abd pain and rectal bleeding; seen in [facility] ED 7 weeks ago for suprapubic pain, rectal bleeding; found to have kidney stone, also mild elevation of lipase; feels that he has passed stone; pain has resolved; still with intermittent red blood with bms, on outside of stool and in toilet bowel, no pain, no hemorrhoid prolapse; was using NSAIDs for awhile, none currently; no N/V or loose stools; no wt loss, no previous abd operations or endoscopy; no fmhx of GI malignancy or IBD; vapes/smokes daily. Review of Systems PHQ Score Initial Depression Screen Score: 0 SCORE ROS - Provider Constitutional: no fever, no sweats, no weight loss. Eyes: no glasses, no blurred vision, no visual loss. ENMT: no dentures, no hoarseness, no swallowing difficulties, no hearing loss, no ear infection(s), no nose bleeds. Cardiovascular: normal blood pressure, no chest pain, regular heartbeat, no heart murmur. Respiratory: no shortness of breath, no cough, no asthma, no wheezing. Gastrointestinal: no nausea, no vomiting, no diarrhea, no constipation, no blood in stool, no change in bowel habits, no abdominal pain, no hepatitis. Genitourinary: no kidney stones, no urine infection, no dysuria. Musculoskeletal: no pain, no weakness. Skin: no changing moles, no rash, no skin lumps. Neurologic: no seizures, no epilepsy, no headache. Psychiatric: no emotional or psychiatric problem. Heme/Lymph: no bleeding problems, no anemia, no blood clots, no transfusions. Allergy/Immunologic: no swollen lymph nodes/glands, no IV drug abuse. Other: Additional ROS info: Except as noted in the above Review of Systems and in the History of Present Illness, all other systems have been reviewed and are negative or noncontributory. Physical Exam Vitals & Measurements HR: 72(Peripheral) RR: 16 BP: 124/84 HT: 71 in HT: 180.34 cm WT: 87.3 kg WT: 192.06 lb BMI: 26.84 HEENT: normal conjunctiva, sclera clear, no scleral icterus, EOM intact, PERRLA, oral mucosa moist without lesions. Neck: trachea midline, no mass, symmetric, no thyromegaly or nodules, no adenopathy Respiratory: lungs CTA, respirations non labored. Cardiovascular: regular rate and rhythm, no murmur, no pedal edema or varicosities. Gastrointestinal: soft, non distended, no tenderness, no masses, no palpable hernias, diastasis recti no, no hepatosplenomegaly; normal bs Lymphatic: no cervical adenopathy, no supraclavicular adenopathy. Musculoskeletal: normal gait, digits and nails without infection, nodes, cyanosis, clubbing. Skin: no rashes, no lesions, no ulcers, no subcutaneous nodules, induration. Psychiatric/Neuro: oriented to time, place, person, judgement normal, affect appropriate for age, insight intact, no focal deficits. Tests: labs reviewed, x-rays reviewed, review of old records completed , Discussed surgical options, risks, and possible complications with patient. Assessment/Plan 1. Rectal bleeding (K62.5: Hemorrhage of anus and rectum) plan colonoscopy under anesthesia for further evaluation, informed consent obtained. Follow-up No qualifying data available Problem List/Past Medical History Ongoing BMI 26.0-26.9,adult BRBPR (bright red blood per rectum) Overweight Rectal bleeding RLQ abdominal pain Ureterolithiasis Historical No qualifying data Procedure/Surgical History Tonsillectomy with adenoidectomy. Medications multivitamin, 1 tab(s), Oral, Daily Wellbutrin XL 300 mg/24 hours Tab-ER, 300 mg= 1 tab(s), Oral, Daily Allergies No Known Allergies No Known Medication Allergies Social History Alcohol - Denies Alcohol Use, 09/29/2023 Substance Abuse Current, Marijuana, 1-2 times per week, 09/29/2023 Tobacco 4 or less cigarettes(less than 1/4 pack)/day in last 30 days Tobacco Use:. Current vaping or e-cigarette use Smokeless Tobacco Use:. Cigarettes, Oral, Started age 14.0 Years. Yes, 09/29/2023 Family History Family history is negative Immunizations Vaccine Date Status Comments SARS-CoV-2 (COVID-19) mRNA BNT-162b2 vax 01/07/2021 Recorded 2023-09-02: ALL SARS-CoV-2 (COVID-19) mRNA BNT-162b2 vax 12/14/2020 Recorded 2023-09-02: ALL [facility] Comment on above: Result Comment: Elec tronically Signed By: ALEJANDRINA KELLY, Seven Soto\Date and Time Signed: 09/29/23 14:59 EDT History and physical note 08-30-2023 Note Date & Type Note Facility 08-30-2023 Note [id number] #1.00TIFF [facility] Evaluation + Plan note Note Date & Type Note Facility Evaluation + Plan note No data available for this section [facility] Hospital Discharge instructions Note Date & Type Note Facility Hospital Discharge instructions No data available for this section [facility] Progress note Note Date & Type Note Facility Progress note No data available for this section [facility] Summary Purpose Family History No Family History Records FoundNo Family History Records FoundNo Family History Records Found No data available for this section No Family History Records Found Advance Directives No Advanced Directives Records FoundNo Advanced Directives Records FoundNo Advanced Directives Records FoundNo Advanced Directives Records Found Additional Source Comments (unrecognized sect ion and content) No Status Records FoundNo Status Records FoundNo Status Records FoundNo Status Records Found INFORMATION SOURCE (unrecogn ized section and content) DATE CREATED AUTHOR 11/24/2017 [facility] DATE CREATED AUTHOR AUTHOR'S ORGANIZ ATION 08/11/2023 [facility] DATE CREATED AUTHOR AUTHOR'S ORGANIZ ATION 09/01/2023 [facility] DATE CREATED AUTHOR AUTHOR'S ORGANIZ ATION 11/22/2023 [facility] Care Teams (unrecognized sec tion and content) Agricultural Economics Teacher Relationship Specialty Start Date End Date Jana Riley MD [address] [place], [place] [id number] PCP - General Family Medicine 10/30/22 Jany Liang NP [address] [place], [place] [id number] Nurse Practitioner Family Medicine 10/30/22 FOR RECORDS PERTAINING TO PATIENTS WHO ARE OR HAVE BEEN ENROLLED IN A CHEMICAL DEPENDENCY/SUBSTANCEABUSE PROGRAM, SOME INFORMATION MAY BE OMITTED. This clinical summary was aggregated from multiple sources. Caution should be exercised in using it in the provision of clinical care. This summary normalizes information from multiple sources, and as a consequence, information in this document may materially change the coding, format and clinical context of patient data. In addition, data may be omitted in some cases. CLINICAL DECISIONS SHOULD BE BASED ON THE PRIMARY CLINICAL RECORDS. [facility]. provides no warranty or guarantee of the accuracy or completeness of information in this document.
== END 2023-11-23 12:23 | disposition home or self-care (01) ==
LOC: PST 12:24
PROVIDERS: PCP Nurse Practitioner Family; Visit Provider Surgery
DX: Z01.818 Encounter for other preprocedural examination (principal); K62.5 Hemorrhage of anus and rectum; R10.9 Unspecified abdominal pain

== ENCOUNTER 2023-12-02 06:01 | Day surgery (SDC) | payer OTHER, SELFPAY ==
[2023-11-23 13:13] VITALS: BMI 26.8
[2023-11-23 13:15] VITALS: BP 133/83; PULSE 66; TEMP 36.3; O2SAT 98
--- NOTE | 2023-12-02 | OP_ITS ---
OPERATION DATE: 12/02/2023 PREOPERATIVE DIAGNOSIS: Intermittent rectal bleeding, lower abdominal pain. POSTOPERATIVE DIAGNOSIS: Prominent rectal veins. PROCEDURE: Colonoscopy to cecum with random sigmoid and rectal biopsies. SURGEON: Seven Plascencia M.D. ANESTHESIA: Monitored anesthesia care. ESTIMATED BLOOD LOSS: Less than 1 mL. INDICATIONS AND CONSENT: Patient is a 38-year-old male with history of intermittent rectal bleeding with bowel movements, bright red, as well as lower abdominal pain. Indications, risks, benefits, alternatives of proceeding with colonoscopy were explained extensively to the patient, including the risks of bleeding, colon perforation or anesthetic complications. All of his questions were answered. Informed consent was obtained. PROCEDURE: Patient brought to the operating room, placed in the left lateral decubitus position. Monitored anesthesia care was provided. Rectal exam was performed which showed no masses or blood. The scope was inserted into the anal canal. Under direct visualization was advanced. It was advanced to the cecum where cecal markings were clearly identified. There was noted to be a good prep. Upon withdrawal of the scope, mucosal surfaces were carefully examined. There were no mass lesions or polyps. No inflammatory changes or ulcerations. There was noted to be some prominent rectal veins. Random biopsy was obtained of the sigmoid colon, as well as the rectum with good hemostasis. The scope was retroflexed in the anal canal. There was no significant hemorrhoidal disease. There were some prominent rectal veins. No old or new blood. The scope was then withdrawn. Patient tolerated procedure well, was sent to recovery room in good condition.f/u screening colonoscopy should be in 10 years. CC: RAMA Mullen
--- OUTSIDE RECORDS SUMMARY | 2023-12-02 06:04 | XMS_ITS | CCD ---
Author Organization [facility] Care Team Providers Care Hook Puller Name Role Phone QUIROS, SHERI A Unavailable Unavailable QUIROS, SHERI A Unavailable Unavailable QUIROS, SHERI A Unavailable Unavailable ZIEBJOSTIN WELLS Unavailable Unavailable Rosemary KELLY, Jana Sanon Primary Care Provider Jany Liang NP Unavailable SERVICES, [facility] Primary Care Unava JANY Mercado Attending Unavailable JANY LIANG Attending Unavailable SANDY SAN Attending Unavailable JANY LIANG Referring Unavailable JANY LIANG Attending Unavailable JANY LIANG Attending Unavailable JANY LIANG Attending Unavailable JANY LIANG Attending Unavailable JANY LIANG Primary Care Physician [phone] Seven TINOCO Attending Unavailable Seven TINOCO Attending Unavailable JANY LIANG Referring Unavailable Allergies Allergy Classification Reported Allergen(s) Allergy Type Date of Onset Reaction(s) Facility (1 source) No Known Medication Allergies; Translations: [No Known Medication Allergies] Propensity to adverse reactions (disorder) [facility] Repository Medications Current Medications Medication Drug Class(es) [...] Insurance Correspondenceon 0 11-20-2023 Insurance Correspondence [id number]#1.00TIFF Normal [facility] Consent for Procedure/Surger yon 09-30-2023 Consent for Procedure/Surgery [id number]#1.00TIFF Normal [facility] Facesheeton 09-30-2023 Facesheet [id number] 72#1.00TIFF [facility] Ambulatory Visit Summaryon 0 09-29-2023 Ambulatory [...] you for choosing us for your care. [facility] ED Note-Physicianon 08-30-19 24 ED Note-Physician [id number]#1.00TIFF [facility] RAD - CT Reporton 08-30-2023 RAD - CT Report [id number]#1.00TIFF [facility] Physician Referralon 024 Physician Referral [id number]#1.00TIFF [facility] US JONH DOP LEG LTon 05-15-20 17 US JOHN DOP LEG LT [address] [place] [address] Patient: GOVIND AVILEZ Exam Date: 05/15/2017DOB: 1985 Gender:M : DR SHERI QUIROS . Admission #: [id number] : Order #: [id number] HERE TO VIEW EXAM RADIOLOGY REPORT PROCEDURE: [...] Contreras M.D. on 05/15/2017 at 12:39 Normal [facility] Vital Signs Date Time Vital Sign Value Performing Clinician Neeta bae 09-29-2023 13:11-0400 Blood Pressure Location Seven TINOCO [facility] 09-29-2023 13:11-0400 Diastolic blood pressure 84 mm[Hg] Seven PALMERL [facility] 09-29-2023 13:11-0400 Heart rate 72 /min Seven PALMERL [facility] 09-29-2023 13:11-0400 Respiratory rate 16 /min Seven PALMERL [facility] 09-29-2023 13:11-0400 Systolic blood pressure 124 mm[Hg] Seven PALMERL [facility] Encounters Encounter Date Encounter Type Care Provider Facility Start: 09-29-2023 End: 09-29-2023 ambulatory Seven TINOCO Facility: [place] Start: 09-29-2023 End: 09-29-2023 Patient encounter procedure Seven TINOCO [facility] [place] Start: 08-31-2023 End: 08-31-2023 ambulatory JANY R LIANG Not Available Start: 08-27-2023 ambulatory Seven TINOCO Facility : [place] Start: 08-17-2023 End: 08-17-2023 ambulatory JANY R LIANG Not Available Start: 08-10-2023 End: 08-10-2023 Emergency department patient visit [facility] Start: 08-10-2023 End: 08-11-2023 ambulatory JANY R LIANG Not Available Start: 07-07-2023 Chart abstracting Sandy miranda MD Work Phone: [facility] Start: 07-07-2023 End: 07-07-2023 ambulatory SANDY SAN [...] Office Visit [facility] [address] [place] [phone] Jany Liang NP [address] [place] [address] [facility] Start: 07-07-2023 End: 07-07-2023 Patient encounter procedure 07/07/2023 11:30 AM EST Office Visit [facility] [address] [facility] [address] [place] [id number] Sandy San MD [address] [facility] [address] [place] [address] [facility] Start: 01-30-2023 Influenza vaccination Influenza Vacc ine (#1) [facility] Immunizations Immunization Date Immunization Notes Care Provider Fa cility 01-07-2021 SARS-CoV-2 (COVID-19 ) mRNA BNT-162b2 vax [employer]Sav[employer] [facility] Comment on above: Result Comment: 2023: ALL 12-14-2020 SARS-CoV-2 (COVID-19 ) mRNA BNT-162b2 vax [employer] Comment on above: Result Comment: 2023: ALL Payers Date Payer Category Payer Unknown BCBS BCBS [id number] 2023-Present [phone] [address] [place] [address] [id number] 2023 Unknown [id number] 2022 Unknown [id number] 1985 Unknown [id number] 2..[id number] 1985 Unknown [id number] 2..840.1.551422.3.579.2.1258 1985 Unknown [id number] 2.16.840.1.481463.3.579.2.1259 1985 Unknown [id number] ..840.1.313204.3.579.2.9 1985 Unknown [id number] 2.16.840.1.383616.3.579.2.1259 1985 Unknown [id number] 2.16.840.1.526402.3.579.2.1259 1985 Unknown [id number] 2.16.840.1.193899.3.579.2.1259 1986 Unknown [id number] 2.16.840.1.760614.3.579.2.1259 1985 Unknown [id number] 2.16.840.1.786277.3.579.2.727 1985 Unknown [id number] 2.16.840.1.223187.3.579.2.727 1958 Self-pay [id number] Social History Date Type Detail Facility Start: 05-12-2023 Tobacco smoking status ALIS Occasional tobacco smoker [facility] History of [...] to any clubs or organizations such as voodoo groups, unions, fraternal or athletic groups, or [...] Tobacco smoking status Light tobacco smoker (finding) [facility] Functional Status Date Assessment Result Facility 09-29-2023 Functional Status N/A [facility] Clinical Note 09-29-2023 Note Date & Type Note Facility 09-29-2023 Note Chief Complaint consultation for rectal bleeding HPI Staff 37 year old male presents on consultation from Jany Liang [employer]PERVIS[employer] for rectal bleeding. Presented to [facility] 08/10 with complaint of crampy lower [...] abd pain and rectal bleeding; seen in [facility] ED 7 weeks ago for suprapubic [...] mRNA BNT-162b2 vax 12/14/2020 Recorded 2023-09-02: ALL [facility] Comment on above: Result Comment: Elec tronically Signed By: ALEJANDRINA KELLY, Seven Soto\Date and Time Signed: 09/29/23 14:59 EDT History and physical note 08-30-2023 Note Date & Type Note Facility 08-30-2023 Note [id number] #1.00TIFF [facility] Evaluation + Plan note Note Date & Type Note Facility Evaluation + Plan note No data available for this section [facility] Discharge instructions Note Date & Type Note Facility Hospital Discharge instructions No data available for this section [facility] Progress note Note Date & Type Note Facility Progress note No data [facility] for [facility] Family History No Family History [...] and content) DATE CREATED AUTHOR 11/24/2017 [facility] DATE CREATED AUTHOR AUTHOR'S ORGANIZ ATION 08/11/2023 [facility] DATE CREATED AUTHOR AUTHOR'S ORGANIZ ATION 09/01/2023 [facility] DATE CREATED AUTHOR AUTHOR'S ORGANIZ ATION 11/22/2023 [facility] Care Teams (unrecognized sec tion and content) Hook Puller Relationship Specialty Start Date End Date Jana Riley MD [address] [place], [place] [phone] PCP - General Family Medicine 10/30/22 Jany Liang NP [address] [place], [place] [phone] Nurse Practitioner Family Medicine 10/30/22 FOR RECORDS [...] BE BASED ON THE PRIMARY CLINICAL RECORDS. [facility] [employer] [facility]. provides no warranty or guarantee of the accuracy or completeness of information in this document.
[2023-12-02 06:20] VITALS: BP 114/67; PULSE 87; TEMP 36.6; O2SAT 98; BMI 26.0
[2023-12-02] MEDS: LACTATED RINGER'S SOLUTION 1,000 ML 50 ML IV (06:31)
[2023-12-02 07:39] VITALS: BP 104/77; PULSE 86; O2SAT 97
[2023-12-02 07:54] VITALS: BP 123/93; PULSE 82; O2SAT 98
[2023-12-02 08:09] VITALS: BP 126/78; PULSE 67; O2SAT 99
== END 2023-12-02 08:09 | disposition home or self-care (01) ==
PROVIDERS: PCP Nurse Practitioner Family; Visit Provider Surgery
PROC: (CPT 00811; principal; 2023-12-02 07:15)
DX: K62.5 Hemorrhage of anus and rectum (principal); R10.9 Unspecified abdominal pain; Z87.442 Personal history of urinary calculi; F17.290 Nicotine dependence, other tobacco product, uncomplicated
CPT/HCPCS: 00811; 45380; 88305; J2250; J2704; J3010